=== PATIENT | female | born 2000 | race Asian ===

== ENCOUNTER 2023-03-01 23:09 | Emergency (ER) | payer SELFPAY ==
--- NOTE | 2023-03-02 01:00 | NUR ---
Patient was just called at this time due to only two nurses schedule in the ER. Triaged nurse has 3 patient with other nurse having 4 patient. Patient was not present in the waiting room or outside of ER to be triage.
--- NOTE | 2023-03-02 01:30 | NUR ---
Patient was called to be triaged but was not present in the waiting room or outside of ER.
--- NOTE | 2023-03-02 02:08 | NUR ---
Patient was called to be triaged but was not present in the waiting room or outside of ER. PATIENT WAS NOT TRIAGED OR SEEN BY ERMD.
== END 2023-03-02 02:11 | disposition left against medical advice (07) ==
LOC: ER 23:09
DX: Z53.21 Procedure and treatment not carried out due to patient leaving prior to being seen by health care provider (principal)